=== PATIENT | male | born 1995 | race Two or more races ===

== ENCOUNTER 2022-03-18 13:17 | Emergency (ER) | payer OTHER ==
[~2022-03-18] VITALS: Ht 172.7 cm; Wt 51.0 kg
[2022-03-18 13:20] VITALS: BP 121/68
[2022-03-18] MEDS ORDERED: SULF1TAB45 PO (16:17)
== END 2022-03-18 16:23 | disposition home or self-care (01) ==
LOC: ER 13:18
DX: K61.1 Rectal abscess (principal); Z79.899 Other long term (current) drug therapy
CPT/HCPCS: 99283

== ENCOUNTER 2022-05-24 08:13 | Emergency (ER) | payer OTHER ==
[~2022-05-24] VITALS: Ht 172.7 cm; Wt 53.0 kg
[2022-05-24 08:24] VITALS: BP 111/73
[2022-05-24] MEDS ORDERED: azithromycin 250mg tablet PO ONE (09:05)
[2022-05-24] MEDS ORDERED: CefTRIAXone 1000mg IM Kit (w/lidocaine diluent) IM STA (09:05)
[2022-05-24] MEDS ORDERED: DOXY100C76 PO (09:37)
--- NOTE | 2022-05-24 10:55 | NUR ---
PT CALLED WITH REQUEST TO RETURN FOR TREATMENT FOR SYPHILIS
== END 2022-05-24 09:58 | disposition home or self-care (01) ==
LOC: ER 08:13
DX: R36.1 Hematospermia (principal); A53.9 Syphilis, unspecified; N50.819 Testicular pain, unspecified
CPT/HCPCS: 36415; 76870; 86592; 93976; 96372; 99285; J0696

== ENCOUNTER 2023-01-02 18:41 | Emergency (ER) | payer MEDICAID, OTHER ==
[~2023-01-02] VITALS: Ht 172.7 cm; Wt 52.9 kg
[2023-01-02 18:48] VITALS: BP 113/73; PULSE 72; RESP 16; TEMP 98.2; O2SAT 100
== END 2023-01-03 02:01 | disposition left against medical advice (07) ==
LOC: ER 18:42
DX: R21 Rash and other nonspecific skin eruption (principal); Z53.21 Procedure and treatment not carried out due to patient leaving prior to being seen by health care provider
CPT/HCPCS: 99281